=== PATIENT | male | born 2000 | race Caucasian/White ===

== ENCOUNTER 2022-11-07 18:45 | Emergency (ER) | payer OTHER ==
[2022-11-07] MEDS ORDERED: diphenhydrAMINE 50 MG/ML SDV IM ONE (19:18)
[2022-11-07] MEDS ORDERED: fentaNYL 100 MCG/2 ML SDV IM ONE (19:18)
== END 2022-11-07 20:21 | disposition home or self-care (01) ==
LOC: JP.ED 18:45
DX: T78.40XA Allergy, unspecified, initial encounter (principal)
CPT/HCPCS: 96372; 99283; J1200; J3010